=== PATIENT | female | born 1995 | race Caucasian/White ===

== ENCOUNTER 2024-01-05 07:28 | Emergency (ER) | payer SELFPAY ==
[2024-01-05] MEDS ORDERED: Acetaminophen 500 MG TAB ONE (07:57)
[2024-01-05 08:40] LABS: SARS-CoV-2 NAA Rapid Test Not Detected (NotDetected)
[2024-01-05] MEDS ORDERED: Ondansetron ODT 4 MG TAB ONE (08:59)
== END 2024-01-05 09:09 | disposition home or self-care (01) ==
LOC: ERS 07:28
DX: J10.1 Influenza due to other identified influenza virus with other respiratory manifestations (principal); Z55.6 Problems related to health literacy
CPT/HCPCS: 87081; 87430; 87804; 99284; Q0162; U0002